=== PATIENT | male | born 1995 | race Caucasian/White ===

== ENCOUNTER 2018-03-09 16:00 | Emergency (ER) | payer OTHER ==
[~2018-03-09] VITALS: Ht 175.3 cm; Wt 63.5 kg
[2018-03-09 16:02] VITALS: BP 143/72
[2018-03-09] MEDS: LORazepam 2 MG/ML VIAL IM ONE (16:30)
[2018-03-09 16:42] VITALS: BP 143/72
== END 2018-03-09 16:40 ==
LOC: MED 16:00
DX: R00.0 Tachycardia, unspecified (principal); F12.10 Cannabis abuse, uncomplicated; Z02.89 Encounter for other administrative examinations
CPT/HCPCS: 96372; 99283; J2060